=== PATIENT | female | born 1950 | race Caucasian/White ===

== ENCOUNTER 2017-05-26 19:30 | Emergency (ER) | payer OTHER ==
[2017-05-26 19:38] VITALS: TEMP 97.5; O2SAT 95
--- NOTE | 2017-05-26 21:23 | EDPHY ---
H & P Stated Complaint: SOB was seen at urgent care yesterday Time Seen by Provider: 05/26/17 21:22 HPI/ROS: CHIEF COMPLAINT: Dyspnea, cough, pleuritic chest pain HISTORY OF PRESENT ILLNESS: The patient presents the ED with a 1 day history of dyspnea, cough and pleuritic chest pain. The patient does have a prior history of asthma. She was seen at urgent care and diagnosed with presumptive reactive airway disease. She was encouraged to use albuterol which she has been using at home without significant improvement of her symptoms. The patient denies asymmetric calf pain or swelling. The patient is currently on hormone replacement therapy. The patient also takes medications for migraines and anxiety. The patient reports that her dyspnea is moderate in nature. It is worsened with movement and associated with cough but not associated with fever. REVIEW OF SYSTEMS: A comprehensive 10 point review of systems is otherwise negative aside from elements mentioned in the history of present illness. Source: Patient - Personal History Current Tetanus/Diphtheria Vaccine: Yes Current Tetanus Diphtheria and Acellular Pertussis (TDAP): Yes - Medical/Surgical History Hx Asthma: Yes Hx Chronic Respiratory Disease: No Hx Diabetes: No Hx Cardiac Disease: No Hx Renal Disease: No Hx Cirrhosis: No Hx Alcoholism: No Hx HIV/AIDS: No Hx Splenectomy or Spleen Trauma: No - Social History Smoking Status: Never smoked - Physical Exam Exam: General Appearance: Alert, no distress Eyes: Pupils equal and round no pallor or injection ENT, Mouth: Mucous membranes moist Respiratory: Distant breath sounds, scant expiratory wheezing Cardiovascular: Regular rate and rhythm Gastrointestinal: Abdomen is soft and nontender, no masses, bowel sounds normal Neurological: A&O, normal motor function, normal sensory exam, normal cranial nerves Skin: Warm and dry, no rashes Musculoskeletal: Neck is supple nontender Extremities: symmetrical, full range of motion, no asymmetric calf tenderness noted Constitutional: Initial Vital Signs Temperature (C) 36.4 C 05/26/17 19:35 Heart Rate 88 05/26/17 19:35 Respiratory Rate 18 05/26/17 19:35 Blood Pressure 130/77 H 05/26/17 19:35 O2 Sat (%) 95 05/26/17 19:35 O2 Delivery Mode Room Air Allergies/Adverse Reactions: No Known Allergies Allergy (Unverified 05/26/17 19:38) Home Medications: Medication Instructions Recorded ALBUTEROL SULFATE 05/26/17 Advair 100/50 (*) 05/26/17 Ambien 05/26/17 Gabapentin 05/26/17 Imitrex 05/26/17 Lorazepam 05/26/17 Propranolol HCl 05/26/17 Medical Decision Making - Diagnostics Imaging Results: Imaging Impressions Chest X-Ray 05/26/17 21:37 Impression: Normal chest. ED Course/Re-evaluation: The patient presents to the ED for evaluation of dyspnea. The patient does have a history of reactive airway disease and was diagnosed as having an acute asthma exacerbation earlier today. The patient was using only albuterol. She has not been on steroids. Given her ongoing dyspnea she presented to the ED for further evaluation. In the emergency department the patient was noted to have stable vital signs without acute hypoxemia. The patient's chest x-ray demonstrates no evidence of acute disease in her D-dimer is negative which I feel adequately excludes pulmonary embolism. The patient did received 60 mg of prednisone will be given a 5 day course of prednisone. The patient is advised to continue her albuterol nebulizer. She should follow up with her regular physician as needed and return to see us for any markedly worsening dyspnea or other concerns. Differential Diagnosis: Differential diagnosis considered includes asthma, bronchitis, pneumonia, pulmonary embolism - Data Points Laboratory Results: Laboratory Results 05/26/17 22:20 05/26/17 22:20 05/26/17 05/26/17 05/26/17 22:20 22:20 22:20 WBC 8.07 10^3/uL 10^3/uL (3.80-9.50) RBC 4.97 10^6/uL 10^6/uL (4.18-5.33) Hgb 15.2 g/dL g/dL (12.6-16.3) Hct 43.7 % % (38.0-47.0) MCV 87.9 fL fL (81.5-99.8) MCH 30.6 pg pg (27.9-34.1) MCHC 34.8 g/dL g/dL (32.4-36.7) RDW 12.2 % % (11.5-15.2) Plt Count 222 10^3/uL 10^3/uL (150-400) MPV 10.7 fL fL (8.7-11.7) Neut % (Auto) 73.8 % % (39.3-74.2) Lymph % (Auto) 12.0 % L % (15.0-45.0) [place] % (Auto) 7.8 % % (4.5-13.0) Eos % (Auto) 5.7 % % (0.6-7.6) Baso % (Auto) 0.2 % L % (0.3-1.7) Nucleat RBC Rel Count 0.0 % % (0.0-0.2) Absolute Neuts (auto) 5.95 10^3/uL 10^3/uL (1.70-6.50) Absolute Lymphs (auto) 0.97 10^3/uL L 10^3/uL (1.00-3.00) Absolute Monos (auto) 0.63 10^3/uL 10^3/uL (0.30-0.80) Absolute Eos (auto) 0.46 10^3/uL H 10^3/uL (0.03-0.40) Absolute Basos (auto) 0.02 10^3/uL 10^3/uL (0.02-0.10) Absolute Nucleated RBC 0.00 10^3/uL 10^3/uL (0-0.01) Immature Gran % 0.5 % % (0.0-1.1) Immature Gran # 0.04 10^3/uL 10^3/uL (0.00-0.10) D-Dimer 0.47 ug/mLFEU ug/mLFEU (0.00-0.50) Sodium 141 mEq/L mEq/L (135-145) Potassium 4.2 mEq/L mEq/L (3.5-5.2) Chloride 105 mEq/L mEq/L (97-110) Carbon Dioxide 22 mEq/l mEq/l (22-31) Anion Gap 14 mEq/L mEq/L (8-16) BUN 9 mg/dL mg/dL (7-23) Creatinine 1.0 mg/dL mg/dL (0.6-1.0) Estimated GFR 56 Glucose 96 mg/dL mg/dL (70-100) Calcium 9.7 mg/dL mg/dL (8.5-10.4) Troponin I < 0.012 ng/mL ng/mL (0.000-0.034) NT-Pro-B Natriuret Pep 66 pg/mL pg/mL (0-125) Medications Given: Discontinued Medications Albuterol/Ipratropium (Duoneb) 3 ml IH EDNOW ONE Stop: 05/26/17 22:03 Last Admin: 05/26/17 22:11 Dose: 3 ml Departure - Departure Disposition: Home, Routine, Self-Care Clinical Impression: Exacerbation of asthma Condition: Good Instructions: Asthma (ED) Additional Instructions: 1. Take prednisone as directed for next 5 days. 2. Please continue to use your albuterol up to every 2-4 hours as needed. Referrals: Gloria Roe MD [Primary Care Provider] - As per Instructions
[2017-05-26] MEDS ORDERED: IPRATROPIUM/ALBUTEROL 3 ML DEYVIAL IH ONE (22:02)
[2017-05-26 22:36] LABS: PLATELET COUNT 222 10^3/uL (150-400)
[2017-05-26] MEDS ORDERED: predniSONE 20 MG TAB PO ONE (23:23)
[2017-05-27 00:19] VITALS: BP 128/83; PULSE 78; RESP 16
== END 2017-05-27 00:16 | disposition home or self-care (01) ==
DX: J45.901 Unspecified asthma with (acute) exacerbation (principal)
CPT/HCPCS: J7512

== ENCOUNTER 2017-06-02 08:25 | Inpatient (IN) | payer OTHER ==
--- NOTE | 2017-06-02 08:43 | EDPHY ---
H & P Stated Complaint: Still coughing;has PCP appt in am;seen here last week for same c/o Time Seen by Provider: 06/02/17 08:41 HPI/ROS: CHIEF COMPLAINT: Chronic cough HISTORY OF PRESENT ILLNESS: The patient presents to the ED with complaints of chronic cough. She was seen in the emergency department last week for similar complaints. At that point time she was evaluated for possible pulmonary embolism and had a negative D-dimer. Her chest x-ray demonstrated no evidence of acute disease and she was placed on a 5 day course of prednisone. She reports her cough is not improved. She reports moderate dyspnea. This is all causing her anxiety to worsen. She is scheduled to see her primary care provider tomorrow for a follow-up appointment. She has been using albuterol and Advair in addition to her prednisone. REVIEW OF SYSTEMS: A comprehensive 10 point review of systems is otherwise negative aside from elements mentioned in the history of present illness. Source: Patient Exam Limitations: No limitations - Personal History Current Tetanus Diphtheria and Acellular Pertussis (TDAP): Yes - Medical/Surgical History Hx Asthma: Yes Hx Chronic Respiratory Disease: No Hx Diabetes: No Hx Cardiac Disease: No Hx Renal Disease: No Hx Cirrhosis: No Hx Alcoholism: No Hx HIV/AIDS: No Hx Splenectomy or Spleen Trauma: No Other PMH: migraines - Social History Smoking Status: Never smoked - Physical Exam Exam: General Appearance: Alert, no distress, anxious Eyes: Pupils equal and round no pallor or injection ENT, Mouth: Mucous membranes moist Respiratory: Tachypnea, scant expiratory wheezing Cardiovascular: Regular rate and rhythm Gastrointestinal: Abdomen is soft and nontender, no masses, bowel sounds normal Neurological: 5/5 strength all 4 extremities Skin: Warm and dry, no rashes Musculoskeletal: Neck is supple nontender Extremities: symmetrical, full range of motion Constitutional: Initial Vital Signs Temperature (C) 36.4 C 06/02/17 08:27 Heart Rate 96 06/02/17 08:27 Respiratory Rate 18 06/02/17 08:27 Blood Pressure 132/77 H 06/02/17 08:27 O2 Sat (%) 95 06/02/17 08:27 O2 Delivery Mode Room Air Allergies/Adverse Reactions: No Known Allergies Allergy (Verified 06/02/17 08:26) Home Medications: Medication Instructions Recorded ALBUTEROL SULFATE 05/26/17 Advair 100/50 (*) 05/26/17 Ambien 05/26/17 Gabapentin 05/26/17 Imitrex 05/26/17 Lorazepam 05/26/17 Propranolol HCl 05/26/17 Medical Decision Making - Diagnostics Imaging Results: Imaging Impressions Chest/Thorax CTA 06/02/17 08:47 Impression: 1. Left lower lobe pneumonia. Recommend follow-up imaging to resolution. 2. No evidence of pulmonary thromboembolic embolism. 3. Nonspecific 5 mm right lower lobe soft tissue nodule. Follow-up imaging in 12 months is recommended to assess stability. Findings and recommendations discussed with Jonathan Benjamin at 1016 hour, 2017. Final report concurs with initial preliminary interpretation. ED Course/Re-evaluation: The patient presents to the ED with complaints of ongoing dyspnea. The patient was seen approximately week ago and had a normal chest x-ray. The patient was noted to be tachycardic and hypoxemic in the emergency department. She had an IV established. A CT pulmonary angiogram was ordered for further characterization of her ongoing symptoms. This did reveal a dense left lower lobe infiltrate without evidence of obvious thromboembolic disease. The patient had an IV established. She received blood cultures x2. She was started on IV Levaquin. The patient will be admitted to the hospital under the care of Dr. Amie Laird in the setting of her tachycardia, tachypnea and hypoxemia. The patient was re-evaluated at 11:00 a.m. and is comfortable with the plan for admission. Differential Diagnosis: Differential diagnosis considered includes asthma, bronchitis, pneumonia, pulmonary embolism - Data Points Laboratory Results: Laboratory Results 06/02/17 08:50 06/02/17 08:50 06/02/17 06/02/17 08:50 08:50 WBC 11.62 10^3/uL H 10^3/uL (3.80-9.50) RBC 4.93 10^6/uL 10^6/uL (4.18-5.33) Hgb 15.2 g/dL g/dL (12.6-16.3) Hct 42.4 % % (38.0-47.0) MCV 86.0 fL fL (81.5-99.8) MCH 30.8 pg pg (27.9-34.1) MCHC 35.8 g/dL g/dL (32.4-36.7) RDW 12.2 % % (11.5-15.2) Plt Count 261 10^3/uL 10^3/uL (150-400) MPV 9.9 fL fL (8.7-11.7) Neut % (Auto) 78.1 % H % (39.3-74.2) Lymph % (Auto) 12.9 % L % (15.0-45.0) [place] % (Auto) 5.3 % % (4.5-13.0) Eos % (Auto) 1.3 % % (0.6-7.6) Baso % (Auto) 0.3 % % (0.3-1.7) Nucleat RBC Rel Count 0.0 % % (0.0-0.2) Absolute Neuts (auto) 9.08 10^3/uL H 10^3/uL (1.70-6.50) Absolute Lymphs (auto) 1.50 10^3/uL 10^3/uL (1.00-3.00) Absolute Monos (auto) 0.62 10^3/uL 10^3/uL (0.30-0.80) Absolute Eos (auto) 0.15 10^3/uL 10^3/uL (0.03-0.40) Absolute Basos (auto) 0.03 10^3/uL 10^3/uL (0.02-0.10) Absolute Nucleated RBC 0.00 10^3/uL 10^3/uL (0-0.01) Immature Gran % 2.1 % H % (0.0-1.1) Immature Gran # 0.24 10^3/uL H 10^3/uL (0.00-0.10) Sodium 138 mEq/L mEq/L (135-145) Potassium 3.8 mEq/L mEq/L (3.5-5.2) Chloride 104 mEq/L mEq/L (97-110) Carbon Dioxide 23 mEq/l mEq/l (22-31) Anion Gap 11 mEq/L mEq/L (8-16) BUN 16 mg/dL mg/dL (7-23) Creatinine 0.9 mg/dL mg/dL (0.6-1.0) Estimated GFR > 60 Glucose 94 mg/dL mg/dL (70-100) Calcium 9.1 mg/dL mg/dL (8.5-10.4) Medications Given: Discontinued Medications Albuterol/Ipratropium (Duoneb) 3 ml IH EDNOW ONE Stop: 06/02/17 09:49 Last Admin: 06/02/17 09:53 Dose: 3 ml Departure - Departure Disposition: [facility] Inpatient Acute Clinical Impression: Pneumonia Qualifiers: Pneumonia type: due to unspecified organism Laterality: left Lung location: lower lobe of lung Qualified Code(s): J18.1 - Lobar pneumonia, unspecified organism Condition: Fair Referrals: Gloria Roe MD [Primary Care Provider] - As per Instructions
[2017-06-02 09:00] LABS: PLATELET COUNT 261 10^3/uL (150-400)
[2017-06-02] MEDS ORDERED: IOPAMIDOL (ISOVUE 370) 100 ML BTL IV ONE (09:00)
[2017-06-02] MEDS ORDERED: IPRATROPIUM/ALBUTEROL 3 ML DEYVIAL IH ONE (09:48)
--- NOTE | 2017-06-02 11:27 | ASMTCMCOM ---
CM Note CM Note Notes: Patient chart reviewed prior to admission from the ER. I have met with patient briefly in the ER. Patient was scheduled for a follow appointment tomorrow with her PCP, Dr. Gloria Roe at [facility] . ML with Dr. Roe's medical secretary receptionist to inform of patient's admission. I do not anticiapate CM or discharge planning needs at this time. CM available prn Date Signed: 06/02/2017 11:27 AM Electronically Signed By:Angelica Krishnan RN
--- NOTE | 2017-06-02 11:30 | ASMTLACE ---
CHARLIE Acuity / Level of Answers: Yes Care: Did the patient have an inpatient admission? Comorbidities - select Answers: Chronic pulmonary disease all that apply # of Emergency department Answers: 1-2 visits in the last 6 months Score: 6 Date Signed: 06/02/2017 11:29 AM Electronically Signed By:Angelica Krishnan RN
[2017-06-02] MEDS ORDERED: ALBUTEROL 60 PUFFS/8 GM MDI IH PRN (13:44)
[2017-06-02] MEDS ORDERED: SUMAtriptan 6 MG/0.5 ML VIAL SC PRN (13:44)
[2017-06-02] MEDS ORDERED: ONDANSETRON 4 MG/2 ML VIAL IVP PRN (13:51)
[2017-06-02] MEDS ORDERED: ACETAMINOPHEN 325 MG TAB PO PRN (13:51)
[2017-06-02] MEDS ORDERED: HYDROCODONE/APAP 5/325 TAB PO PRN (13:51)
[2017-06-02] MEDS ORDERED: ONDANSETRON DISINTEGRATING 4 MG TAB PO PRN (13:51)
[2017-06-02] MEDS ORDERED: MAGNESIUM SULF 2 GM/WATER 50 ML IV ONE (14:04)
[2017-06-02] MEDS: ALBUTEROL 3 ML DEYVIAL IH PRN ×2 (14:28→20:29)
--- NOTE | 2017-06-02 14:45 | GHP ---
[f rep st] HISTORY AND PHYSICAL DATE OF ADMISSION: 06/02/2017 CHIEF COMPLAINT: Shortness of breath and cough. HISTORY OF PRESENT ILLNESS: Ms. Mai is a 66-year-old with a history significant for asthma. She comes in with increasing shortness of breath and cough for a couple of weeks. She initially went to Urgent Care and eventually the ER last week. At that time she had a chest x-ray done, which was unremarkable, and she was diagnosed with bronchitis and sent home on 60 mg of prednisone for 5 days and told to continue her albuterol nebulizer. Over that period of time she did not improve significantly and actually got worse. She comes in today with increasing shortness of breath and marked dyspnea on exertion where she is having trouble ambulating around the house. She denies any significant fever, chills, or muscle aches. She has had no nausea, vomiting , or diarrhea, although she has had some poor p.o. intake due to her poor appetite. No lower extremity edema or joint issues. She has had 3 migraines in the last week, which is unusual for her. REVIEW OF SYSTEMS: A 10-point review of systems was done and is negative, except as stated in the HPI. PAST MEDICAL HISTORY: 1. Migraine headaches on gabapentin and propranolol for prophylaxis and Imitrex for treatment. 2. Insomnia. 3. Reactive airways disease. 4. Anxiety. 5. Hypothyroidism. SOCIAL HISTORY: She is and lives in a house with her [id number], her daughter, and her grandchild. She does not smoke or drink. 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 FAMILY HISTORY: Mother from colon cancer. Father from lung cancer and he was a smoker. CURRENT MEDICATIONS: Advair 100/50 mcg, Pristiq 50 mg daily, compounded progesterone, B complex, [place] Thyroid, Ambien, gabapentin 900 mg a day, propranolol 120 mg daily, albuterol nebulizers and inhalers as needed, and Ativan at night. ALLERGIES: No known drug allergies. PHYSICAL EXAM: VITAL SIGNS: She is afebrile, heart rate is 109, blood pressure 131/74, respirations 20, and she is 95% on 2 L. GENERAL: She is a very pleasant 66-year-old in respiratory distress. She is alert and oriented. HEENT: Pupils are equal. Extraocular movements are intact. Mucous membranes are moist. NECK: Supple with no adenopathy. HEART: Regular and slightly tachycardic, but no murmur. LUNGS: Diminished breath sounds bilaterally with expiratory wheezing, particularly at the left base. ABDOMEN: Soft with no masses. Normal bowel sounds. EXTREMITIES: No clubbing, cyanosis, or edema. MUSCULOSKELETAL: No joint effusions or deformities. NEUROLOGIC: Her speech is fluent, although she has difficulty completing sentences due to her dyspnea. She is alert and oriented. She moves all 4 extremities. SKIN: Intact with no obvious rashes. PSYCHIATRIC: Mood is appropriate. LABORATORY DATA: CBC shows a white count of 11.6, hemoglobin of 15.2, and platelet count of 261. Electrolytes and renal function are within normal limits. IMAGING: Chest and thoracic CT angiogram shows no pulmonary embolism, but left lower lobe pneumonia. She had a nonspecific 5 mm right lower lobe soft tissue nodule and I recommend followup imaging in 12 months to assess stability. ASSESSMENT AND PLAN: This is a 66-year-old with a history of asthma who presents with increasing dyspnea on exertion and cough. 1. Acute asthma exacerbation with acute respiratory failure noted by tachypnea and dyspnea on exertion. Viral panel did note human metapneumovirus. Additionally, her CT angiogram showed evidence of left lower lobe pneumonia. 2. Pneumonia. We will treat with Levaquin. Blood cultures were drawn and are pending. Follow clinically. Repeat imaging to ensure resolution. 3. Human metapneumovirus. The patient will continue on respiratory precautions. No further treatment is necessary, except for symptomatic. 4. Acute asthma exacerbation secondary to above. We will start her on Solu- Medrol given her non-improvement with prednisone. Continue nebulizers, including DuoNeb scheduled and add heliox to her albuterol nebulizers. We will give her 1 dose of magnesium and follow her clinically. I suspect she will slowly improve, but will need greater than 2 midnight stay. 5. Migraines. We will continue her prophylactic medications and provide Imitrex if needed. 6. Anxiety. Continue Pristiq. 7. Insomnia. Continue hypnotic medications that she was on at home. 8. Deep vein thrombosis prophylaxis. The patient is at medium risk, so we will start her on low-molecular weight heparin. DISPOSITION: Given the patient's significant dyspnea on exertion and respiratory failure with her asthma exacerbation and pneumonia, she will require a greater than 2 midnight stay. /[id number]/MODL MTDD
--- NOTE | 2017-06-02 15:46 | PDMN ---
Medical Necessity Medical necessity: Patient meets inpatient criteria per physician note and MCG M -60 Asthma (presents with increasing shortness of breath and cough x several weeks; seen at urgent care and ED last week, treated for bronchitis w/nebs and steroids and symptoms worsened; now with marked dyspnea on exertion and persistent tachypnea/RR to 24 after initial care; LLL pneumonia on chest CT, leukocytosis/WBC > 11,000; + for human metapneumovirus; history of asthma; anticipated LOS > 2 midnights for ongoing IV antibiotics, IV steroids, freq nebs , resp precautions for human metapneumovirus.)
[2017-06-02] MEDS: IPRATROPIUM/ALBUTEROL 3 ML DEYVIAL IH SCH ×2 (16:27→23:04)
[2017-06-02] MEDS: GABAPENTIN 300 MG CAP PO SCH (17:43)
[2017-06-02] MEDS: ZOLPIDEM TARTRATE 5 MG TAB PO SCH (21:07)
[2017-06-02] MEDS: methylPREDNISolone SOD SUCC 40 MG/ML VIAL IVP SCH (21:08)
[2017-06-02] MEDS: LORazepam 1 MG TAB PO SCH (21:08)
[2017-06-02] MEDS: COMPOUNDED PROGESTERONE 200 MG PO SCH (21:43)
[2017-06-02] MEDS: FLUTICASONE/SALMETER 100/50MCG DISKUS IH SCH (23:08)
[2017-06-03 04:42] LABS: PLATELET COUNT 232 10^3/uL (150-400)
[2017-06-03] MEDS: IPRATROPIUM/ALBUTEROL 3 ML DEYVIAL IH SCH ×4 (05:22→21:04)
[2017-06-03] MEDS: methylPREDNISolone SOD SUCC 40 MG/ML VIAL IVP SCH ×3 (05:24→21:35)
--- NOTE | 2017-06-03 08:12 | HOSPPROG ---
Hospitalist Progress Note Assessment/Plan: 66-year-old with a history of asthma is admitted with a viral pneumonia and possible bacterial pneumonia super imposed. She is still dyspneic and quite tight on exam but is feeling a little bit better with frequent nebulizer treatments. # pneumonia. Unclear if bacterial superimposed on a viral pneumonia. Will continue Levaquin for 5 days. # acute asthma exacerbation due to above some slight improvement overnight but still quite tight on exam with some dyspnea on exertion * Will need additional midnight stay * Continue IV steroids will transition oral steroids later this afternoon and make sure she does well on oral prednisone * Continue Heliox with albuterol today # elevated blood sugars likely secondary to steroid use. Discussed low sugar diet with patient today will consider insulin if they remain elevated. # migraine headaches, improved # hypothyroidism on replacement # DVT prophylaxis, patient on low-molecular weight heparin Subjective: Starting to feel better but still quite tight on exam. Patient has not gotten up to ambulate yet. Objective: Vital Signs Temp Pulse Resp BP Pulse Ox 36.7 C 111 H 18 124/75 H 96 06/03/17 07:45 06/03/17 07:45 06/03/17 07:45 06/03/17 07:45 06/03/17 07:45 Laboratory Results 06/03/17 04:16 06/03/17 04:16 06/02/17 06/03/17 06/04/17 05:59 05:59 05:59 Intake Total 1165 Balance 1165 - Physical Exam Constitutional: no apparent distress, not in pain Eyes: PERRL, anicteric sclera, EOMI Ears, Nose, Mouth, Throat: moist mucous membranes Cardiovascular: regular rate and rhythym Respiratory: no respiratory distress, reduced air movement (, significantly decreased breath sounds at the bases), expiratory wheeze Gastrointestinal: soft, non-tender abdomen Genitourinary: no bladder fullness Skin: warm Neurologic: AAOx3 Psychiatric: interacting appropriately, not anxious ICD10 Worksheet Patient Problems: Problems Problem Status Onset Pneumonia Acute
[2017-06-03] MEDS: FLUTICASONE/SALMETER 100/50MCG DISKUS IH SCH ×2 (09:28→21:36)
[2017-06-03] MEDS: DESVENLAFAXINE SUCCINATE 50 MG PO SCH (09:48)
[2017-06-03] MEDS: PROPRANOLOL HCL 120 MG PO SCH (09:49)
[2017-06-03] MEDS: FOLIC ACID PO SCH (09:50)
[2017-06-03] MEDS: THYROID 60 MG TAB PO SCH (09:50)
[2017-06-03] MEDS: VITAMIN B COMPLEX PO SCH (09:50)
[2017-06-03] MEDS: ENOXAPARIN 40 MG/0.4 ML SYR SC SCH (09:55)
[2017-06-03] MEDS: GABAPENTIN 300 MG CAP PO SCH (19:24)
[2017-06-03] MEDS: COMPOUNDED PROGESTERONE 200 MG PO SCH (21:35)
[2017-06-03] MEDS: ZOLPIDEM TARTRATE 5 MG TAB PO SCH (21:55)
[2017-06-03] MEDS: LORazepam 1 MG TAB PO SCH (21:55)
[2017-06-04] MEDS: IPRATROPIUM/ALBUTEROL 3 ML DEYVIAL IH SCH ×4 (02:02→18:05)
[2017-06-04] MEDS: methylPREDNISolone SOD SUCC 40 MG/ML VIAL IVP SCH ×2 (06:01→13:25)
[2017-06-04] MEDS: ALBUTEROL 3 ML DEYVIAL IH PRN ×3 (09:09→21:06)
[2017-06-04] MEDS: FLUTICASONE/SALMETER 100/50MCG DISKUS IH SCH ×2 (09:10→21:08)
[2017-06-04] MEDS: THYROID 60 MG TAB PO SCH (09:49)
[2017-06-04] MEDS: DESVENLAFAXINE SUCCINATE 50 MG PO SCH (09:51)
[2017-06-04] MEDS: PROPRANOLOL HCL 120 MG PO SCH (09:52)
[2017-06-04] MEDS: ENOXAPARIN 40 MG/0.4 ML SYR SC SCH (09:52)
[2017-06-04] MEDS: VITAMIN B COMPLEX PO SCH (09:55)
[2017-06-04] MEDS: FOLIC ACID PO SCH (09:55)
--- NOTE | 2017-06-04 13:41 | HOSPPROG ---
Hospitalist Progress Note Assessment/Plan: 66-year-old with a history of asthma is admitted with a viral pneumonia and possible bacterial pneumonia super imposed. She is still dyspneic and quite tight on exam but is feeling a little bit better with frequent nebulizer treatments. Today is my first encounter w the patient, chart reviewed. # pneumonia. Unclear if bacterial superimposed on a viral pneumonia. Will continue Levaquin for 5 days. * PCR shows human metapneumovirus # acute asthma exacerbation due to above some slight improvement overnight but still quite tight on exam with some dyspnea on exertion * Will need additional midnight stay * On IV steroids will transition oral steroids tomorrow (last dose of iv steroids tonight) * will check magnesium level and give dose of iv Mag sulfate # elevated blood sugars likely secondary to steroid use. Discussed low sugar diet with patient today will consider insulin if they remain elevated. # migraine headaches, improved * no c/o of this today # hypothyroidism on replacement # DVT prophylaxis, patient on low-molecular weight heparin *Plan: check mag level, give iv magnesium if stable level, trial of Zyrtec, change steroids to oral starting tomorrow morning Subjective: Tanya is not feeling well today. Still short of breath. Objective: Vital Signs Temp Pulse Resp BP Pulse Ox 36.4 C 88 18 105/67 92 06/04/17 07:50 06/04/17 12:05 06/04/17 12:05 06/04/17 07:50 06/04/17 12:05 Laboratory Results 06/03/17 04:16 06/03/17 04:16 06/03/17 06/04/17 06/05/17 05:59 05:59 05:59 Intake Total 1165 800 Balance 1165 800 - Physical Exam Constitutional: appears nourished, not in pain Eyes: PERRL Ears, Nose, Mouth, Throat: hearing normal Cardiovascular: regular rate and rhythym Respiratory: no respiratory distress, other (tight lung sounds) Skin: warm, normal color Musculoskeletal: full muscle strength Neurologic: AAOx3 Psychiatric: interacting appropriately ICD10 Worksheet Patient Problems: Problems Problem Status Onset Pneumonia Acute
[2017-06-04] MEDS ORDERED: methylPREDNISolone SOD SUCC 40 MG/ML VIAL IVP SCH (15:37)
[2017-06-04] MEDS: LEVALBUTEROL INHALER 200 PUFFS/15 GM MDI IH PRN (16:00)
[2017-06-04] MEDS ORDERED: MAGNESIUM SULF 1 GM/DEXTROSE 100 ML IV ONE (17:05)
[2017-06-04] MEDS: GABAPENTIN 300 MG CAP PO SCH (17:34)
[2017-06-04] MEDS: CETIRIZINE 10 MG TAB PO SCH (17:40)
[2017-06-04] MEDS: ZOLPIDEM TARTRATE 5 MG TAB PO SCH (22:07)
[2017-06-04] MEDS: LORazepam 1 MG TAB PO SCH (22:07)
[2017-06-04] MEDS: COMPOUNDED PROGESTERONE 200 MG PO SCH (22:07)
[2017-06-05] MEDS: LEVALBUTEROL INHALER 200 PUFFS/15 GM MDI IH PRN ×2 (00:01→06:43)
[2017-06-05] MEDS: IPRATROPIUM/ALBUTEROL 3 ML DEYVIAL IH SCH ×6 (00:12→23:08)
[2017-06-05] MEDS: ALBUTEROL 3 ML DEYVIAL IH PRN (06:57)
[2017-06-05] MEDS: FLUTICASONE/SALMETER 100/50MCG DISKUS IH SCH ×2 (07:20→19:06)
[2017-06-05] MEDS: DESVENLAFAXINE SUCCINATE 50 MG PO SCH (09:00)
[2017-06-05] MEDS: predniSONE 20 MG TAB PO SCH (09:17)
[2017-06-05] MEDS: ENOXAPARIN 40 MG/0.4 ML SYR SC SCH (09:17)
[2017-06-05] MEDS: THYROID 60 MG TAB PO SCH (09:17)
[2017-06-05] MEDS: CETIRIZINE 10 MG TAB PO SCH (09:18)
[2017-06-05] MEDS: PROPRANOLOL HCL 120 MG PO SCH (09:20)
[2017-06-05] MEDS: VITAMIN B COMPLEX PO SCH (10:49)
[2017-06-05] MEDS: FOLIC ACID PO SCH (10:49)
[2017-06-05] MEDS ORDERED: MAGNESIUM SULF 1 GM/DEXTROSE 100 ML IV ONE (13:30)
--- NOTE | 2017-06-05 13:35 | HOSPPROG ---
Hospitalist Progress Note Assessment/Plan: 66-year-old with a history of asthma is admitted with a viral pneumonia and possible bacterial pneumonia super imposed. # pneumonia. Unclear if bacterial superimposed on a viral pneumonia. Will continue Levaquin for 5 days. * PCR shows human metapneumovirus # acute asthma exacerbation due to above with improvement * Will need additional midnight stay * on Prednisone 40 mg daily * the IV magnesium helped her significantly, will give another dose * Zyrtec has helped # elevated blood sugars likely secondary to steroid use. Discussed low sugar diet with patient today will consider insulin if they remain elevated. # migraine headaches, improved * no c/o of this today # hypothyroidism on replacement # DVT prophylaxis, patient on low-molecular weight heparin *Plan: suspect she will be ready for dc tomorrow, she is oxygenating on room air during my evaluation, will give her another dose of iv magnesium, lungs sounds till tight. Subjective: Tanya is feeling slowly better, not quite well enough to go home. Objective: Vital Signs Temp Pulse Resp BP Pulse Ox 36.3 C 84 18 114/71 94 06/05/17 07:42 06/05/17 10:20 06/05/17 10:20 06/05/17 07:42 06/05/17 10:20 Laboratory Results 06/03/17 04:16 06/05/17 04:13 06/04/17 06/05/17 06/06/17 05:59 05:59 05:59 Intake Total 800 Balance 800 - Physical Exam Constitutional: no apparent distress, appears nourished, not in pain Eyes: PERRL Ears, Nose, Mouth, Throat: hearing normal Cardiovascular: regular rate and rhythym Respiratory: no respiratory distress, reduced air movement Skin: warm Musculoskeletal: full muscle strength Neurologic: AAOx3 Psychiatric: interacting appropriately ICD10 Worksheet Patient Problems: Problems Problem Status Onset Pneumonia Acute
--- NOTE | 2017-06-05 13:40 | ASMTCMCOM ---
CM Note CM Note Notes: Pt on IV steroids, will transition to orals tomorrow. Likely d/c tomorrow. No therapies ordered No CM d/c needs anticipated at this time. CM available for changes/needs. Date Signed: 06/05/2017 01:39 PM Electronically Signed By:ANGELICA Mukherjee
[2017-06-05] MEDS: IBUPROFEN 200 MG TAB PO PRN (16:13)
[2017-06-05] MEDS: GABAPENTIN 300 MG CAP PO SCH (19:29)
[2017-06-05] MEDS ORDERED: LACTULOSE 20 GM/30 ML UDCUP PO PRN (20:12)
[2017-06-05] MEDS ORDERED: BISACODYL 10 MG SUPP PR PRN (20:12)
[2017-06-05] MEDS ORDERED: MAGNESIUM HYDROXIDE 30 ML UDCUP PO PRN (20:12)
[2017-06-05] MEDS: COMPOUNDED PROGESTERONE 200 MG PO SCH (20:12)
[2017-06-05] MEDS ORDERED: POLYETHYLENE GLYCOL 3350 17 GM PKT PO PRN (20:12)
[2017-06-05] MEDS: ZOLPIDEM TARTRATE 5 MG TAB PO SCH (22:06)
[2017-06-05] MEDS: SENNOSIDES/DOCUSATE SODIUM TAB PO SCH (22:06)
[2017-06-05] MEDS: LORazepam 1 MG TAB PO SCH (22:06)
[2017-06-06 00:51] VITALS: RESP 16
[2017-06-06] MEDS: IPRATROPIUM/ALBUTEROL 3 ML DEYVIAL IH SCH (05:46)
[2017-06-06] MEDS: FLUTICASONE/SALMETER 100/50MCG DISKUS IH SCH (05:48)
[2017-06-06 05:51] VITALS: PULSE 72; O2SAT 94
[2017-06-06 07:39] VITALS: BP 115/70; TEMP 98.5
[2017-06-06] MEDS: SENNOSIDES/DOCUSATE SODIUM TAB PO SCH (10:05)
[2017-06-06] MEDS: predniSONE 20 MG TAB PO SCH (10:05)
[2017-06-06] MEDS: THYROID 60 MG TAB PO SCH (10:05)
[2017-06-06] MEDS: CETIRIZINE 10 MG TAB PO SCH (10:05)
[2017-06-06] MEDS: ENOXAPARIN 40 MG/0.4 ML SYR SC SCH (10:06)
[2017-06-06] MEDS: DESVENLAFAXINE SUCCINATE 50 MG PO SCH (10:06)
[2017-06-06] MEDS: PROPRANOLOL HCL 120 MG PO SCH (10:07)
[2017-06-06] MEDS: ALBUTEROL 3 ML DEYVIAL IH PRN (10:16)
--- NOTE | 2017-06-06 11:00 | HOSPPROG ---
Hospitalist Progress Note Assessment/Plan: 66-year-old with a history of asthma is admitted with a viral pneumonia and possible bacterial pneumonia super imposed. # pneumonia. Unclear if bacterial superimposed on a viral pneumonia. Will continue Levaquin for 5 days. * PCR shows human metapneumovirus # acute asthma exacerbation due to above with improvement * on Prednisone 40 mg daily * Zyrtec has helped # elevated blood sugars likely secondary to steroid use. Discussed low sugar diet with patient today will consider insulin if they remain elevated. # migraine headaches, improved * no c/o of this today # hypothyroidism on replacement # DVT prophylaxis, patient on low-molecular weight heparin *Plan: dc home Subjective: Tanya is c/o sore throat, but overall feeling better. Objective: Vital Signs Temp Pulse Resp BP Pulse Ox 36.9 C 72 16 115/70 94 06/06/17 07:35 06/06/17 07:35 06/06/17 07:35 06/06/17 07:35 06/06/17 07:35 Laboratory Results 06/03/17 04:16 06/05/17 04:13 06/05/17 06/06/17 06/07/17 05:59 05:59 05:59 Intake Total 0 Balance 0 - Physical Exam Constitutional: no apparent distress, appears nourished Eyes: PERRL Ears, Nose, Mouth, Throat: other (right throat area with some whitish area, left side with some redness) Cardiovascular: regular rate and rhythym Respiratory: no respiratory distress, no rales or rhonchi Gastrointestinal: normoactive bowel sounds Skin: warm Musculoskeletal: full muscle strength Neurologic: AAOx3 Psychiatric: interacting appropriately ICD10 Worksheet Patient Problems: Problems Problem Status Onset Pneumonia Acute
--- NOTE | 2017-06-06 11:11 | ASMTCMCOM ---
CM Note CM Note Notes: Chart reviewed. Medically cleared for discharge to home independently. Cm availble should any needs arise. Date Signed: 06/06/2017 11:11 AM Electronically Signed By:Nora Reyna RN
[2017-06-06] MEDS: IBUPROFEN 200 MG TAB PO PRN (11:35)
[2017-06-06] MEDS: VITAMIN B COMPLEX PO SCH (11:54)
[2017-06-06] MEDS: FOLIC ACID PO SCH (11:54)
[2017-06-06] MEDS ORDERED: NYSTATIN SUSP 500000 UNIT/5 ML UDCUP PO SCH (12:00)
[2017-06-06] MEDS: LEVALBUTEROL INHALER 200 PUFFS/15 GM MDI IH PRN (12:27)
--- NOTE | 2017-06-06 14:18 | GDS ---
[f rep st] DISCHARGE SUMMARY DISCHARGE DIAGNOSES: 1. Pneumonia. 2. Acute asthma exacerbation. 3. Elevated glucoses secondary to steroid use. 4. Migraine headaches. 5. Hypothyroidism. HISTORY OF PRESENT ILLNESS: Briefly, the patient is a 66-year-old female with a history significant for asthma. She presented to the emergency room with increasing shortness of breath and cough for a couple of weeks. She initially went to urgent care and then went to the ER last week because she just was not feeling better. Her chest x-ray was done, which was unremarkable, and she was diagnosed with bronchitis and sent home on prednisone. She still continued to feel poorly. She had a CT angiogram performed, which showed no pulmonary embolism, but left lower lobe pneumonia. She had a nonspecific 5 mm right lower lobe soft tissue nodule and the provider admitting her recommended followup imaging in 12 months to assess stability. Today, she is feeling better , except for sore throat. She will be discharged home and follow up with her primary care provider. HOSPITAL COURSE PER PROBLEM: 1. Pneumonia. It is unclear if this is bacterial superimposed on a viral pneumonia. She was treated Levaquin. She had a PCR performed, which showed human metapneumovirus, suspect that is why it took her a period of time to feel better. 2. Acute asthma exacerbation. This improved nicely. She is on prednisone. Zyrtec has also helped. She is on room air today. 3. Elevated blood sugars. They are better today. This is secondary to steroid use. Her steroids will be weaned off over the next several days. 4. Migraine headaches. No complaints. 5. Hypothyroidism on replacement. DISCHARGE CONDITION: Stable. Blood pressure is 115/70, respiratory rate is 16 , pulse 72, temperature is 36.9, O2 sats on room air are 94%. MEDICATIONS AT DISCHARGE: Please see the EMR. She will be on Levaquin 1 more day. Reviewed with her the signs and symptoms associated with Levaquin and tendon rupture. FOLLOW UP: 1. To follow up with her primary care provider and get a repeat chest x-ray in 6 weeks to make sure resolution of pneumonia. 2. Further follow in regards to the nodule noted in the CTA. She should get repeat imaging in 12 months. 3. If she develops fever, chills, chest pain or shortness of breath, return to the ER. Greater than 30 minutes discharging and coordinating care. /[id number]/MODL MTDD
== END 2017-06-06 13:48 | disposition home or self-care (01) | DRG 194 ==
LOC: F3N 11:34
PROVIDERS: ADMIT Internal Medicine; ATTEND Internal Medicine
DX: J12.3 Human metapneumovirus pneumonia (principal); J45.901 Unspecified asthma with (acute) exacerbation; R91.1 Solitary pulmonary nodule; R09.02 Hypoxemia; R00.0 Tachycardia, unspecified; G43.909 Migraine, unspecified, not intractable, without status migrainosus; F41.9 Anxiety disorder, unspecified; G47.00 Insomnia, unspecified; E03.9 Hypothyroidism, unspecified; R73.02 Impaired glucose tolerance (oral); Z79.52 Long term (current) use of systemic steroids; Z80.1 Family history of malignant neoplasm of trachea, bronchus and lung; Z80.0 Family history of malignant neoplasm of digestive organs
CPT/HCPCS: 96365; J1650; J1956; J2920; J3030; J3475; J7512; J7613; Q9967

== ENCOUNTER → 2018-06-01 | Outpatient (CLI) | payer OTHER, MEDICARE | LOC: BMCIMAGING 07:13 | PROVIDERS: ATTEND Registered Nurse Maternal Newborn | DX: Z13.820 Encounter for screening for osteoporosis (principal); M81.0 Age-related osteoporosis without current pathological fracture; Z78.0 Asymptomatic menopausal state; Z79.899 Other long term (current) drug therapy; Z87.81 Personal history of (healed) traumatic fracture ==

== ENCOUNTER → 2018-06-05 | Outpatient (CLI) | payer OTHER, MEDICARE | LOC: BMCIMAGING 12:51 | PROVIDERS: ATTEND Family Medicine | DX: R05 Cough (principal) ==